=== PATIENT | male | born 1935 | race Caucasian/White ===

== ENCOUNTER 2022-02-28 08:01 | Day surgery (SDC) | payer MEDICARE, OTHER ==
[2022-02-28] VITALS (11 sets, daily range): BP systolic 98–128; BP diastolic 61–91
[~2022-02-28] VITALS: Ht 174 cm; Wt 75.0 kg
[2022-02-28] MEDS ORDERED: NS IV 1000 ML 1,000 ML IV STA (08:04)
[2022-02-28] MEDS ORDERED: fentaNYL INJ 100 MCG/2 ML AMP IVP ONE (08:15)
[2022-02-28] MEDS ORDERED: LIDOCAINE 1% INJ 20 ML VIAL INJ ONE (08:15)
[2022-02-28] MEDS ORDERED: MIDAZOLAM 2 MG/2 ML (VERSED) VIAL IVP ONE (08:15)
[2022-02-28 08:40] LABS: EOSINOPHILS % (AUTO) 1 % (0-10); HEMOGLOBIN 8.3 g/dL (13.3-17.7); MEAN CORPUSCULAR VOLUME 102 fL (80-99)
[2022-02-28 08:42] LABS: ABSOLUTE RETIC # 36 10e9/uL (24-90); BASOPHILS # (AUTO) 0.1 10^3/uL (0.0-0.1); BASOPHILS % (AUTO) 0 % (0-10); EOSINOPHILS # (AUTO) 0.2 10^3/uL (0.0-0.3); HEMATOCRIT 25 % (40-54); LYMPHOCYTES % (AUTO) 14 % (12-44); MEAN CORPUSCULAR HEMOGLOBIN 34 pg (25-34); MEAN CORPUSCULAR HGB CONC 34 g/dL (32-36); MEAN PLATELET VOLUME 9.9 fL (9.0-12.2); MONOCYTES # (AUTO) 1.4 10^3/uL (0.0-1.0); MONOCYTES % (AUTO) 10 % (0-12); NEUTROPHILS # (AUTO) 10.8 10^3/uL (1.8-7.8); NEUTROPHILS % (AUTO) 74 % (42-75); PLATELET COUNT 150 10^3/uL (130-400); RETICULOCYTE % 1.48 % (0.50-2.40); WHITE BLOOD COUNT 14.7 10^3/uL (4.3-11.0)
[2022-02-28 09:02] LABS: INR 1.1 (0.8-1.4); PROTHROMBIN TIME PATIENT 14.5 SEC (12.2-14.7)
[2022-02-28] MEDS ORDERED: PANT40TA52 PO (09:05)
[2022-02-28] MEDS ORDERED: FERR-84 PO (09:05)
[2022-02-28] MEDS ORDERED: LEVO50TA6 PO (09:05)
[2022-02-28 09:57] LABS: ANISOCYTOSIS SLIGHT; BAND NEUTROPHILS 2 %; BASOPHILS % (MANUAL) 0 %; EOSINOPHILS % (MANUAL) 3 %; LYMPHOCYTES % (MANUAL) 13 %; MONOCYTES % (MANUAL) 5 %; NEUTROPHILS % (MANUAL) 77 %; POIKILOCYTOSIS SLIGHT; POLYCHROMASIA SLIGHT
[2022-02-28 09:58] LABS: ELLIPT/OVALOCYTES SLIGHT; TEAR DROP CELLS SLIGHT
--- NOTE | 2022-02-28 10:10 | Pre-Op Note & Conscious Sedat ---
Pre-Operative Progress Note H&P Reviewed The H&P was reviewed, patient examined and no changes noted. Date H&P Reviewed: February 28, 2022 Time H&P Reviewed: 09:00 Pre-Op Diagnosis: D53.9 Conscious Sedation Pre-Proced Time 09:00 ASA Score 2 For ASA 3 and 4: Consider anesthesia and medical clearance. Also, for patients with a history of failed moderate sedation consider anesthesia. Airway Lungs Heart ASA score ASA 1: a normal healthy patient ASA 2: a patient with a mild systemic disease (mid diabetes, controlled hypertension, obesity ASA 3: a patient with a severe systemic disease that limits activity (angina, COPD, prior Myocardial infarction) ASA 4: a patient with an incapacitating disease that is a constant threat to life (CHF, renal failure) ASA 5: a moribund patient not expected to survive 24 hrs. (ruptured aneurysm) ASA 6: a declared brain- patient whose organs are being harvested. For emergent operations, add the letter E after the classification Mallampati Classification Grade 2 Sedation Plan Analgesia, Amnesia, Plan communicated to team members, Discussed options with patient/fam, Discussed risks with patient/fam The patient is an appropriate candidate to undergo the planned procedure, sedation, and anesthesia. The patient immediately re-assessed prior to indication. MARINO MALIN MD February 28, 2022 10:10
[2022-02-28] MEDS ORDERED: HYDROcodone/APAP 5 MG/325 MG (LORTAB) TAB PO PRN (10:15)
--- NOTE | 2022-02-28 10:43 | Diagnostic Imaging Report ---
Indication: D 53.9. Patient presents for CT-guided bone marrow aspiration and biopsy. Patient is brought to the CT suite placed on the table in the prone addition. Axial imaging through the pelvis was performed to evaluate appropriate entry site. The low back was prepped and draped in usual sterile fashion. Small amount of 1% lidocaine was utilized for local anesthesia. The procedure was performed utilizing conscious sedation with radiology nursing and constant patient monitoring. Patient was given a total of 50 mcg of fentanyl intravenously and 1 mg of Versed intravenously. Total procedure time was 3 minutes. Bone marrow needle was advanced and placed with its tip along the posterior cortex of the right iliac bone. The bone marrow needle was advanced through the cortex utilizing the bone marrow drill. 2 bone marrow aspirates were then obtained. Next, the bone marrow drill was utilized to obtain a bone marrow core sample. The needle was withdrawn and hemostasis was obtained using manual compression. The patient tolerated the procedure well and left the department in stable condition. IMPRESSION: Successful CT-guided bone marrow aspiration and core biopsy utilizing conscious sedation. Pathology results are currently pending. Dictated by: Dictated on workstation # [id number]
== END 2022-02-28 12:00 | disposition home or self-care (01) ==
LOC: RAD 08:01 → SDC 09:22 → RAD 12:00
PROVIDERS: ATTEND Internal Medicine Hematology & Oncology
DX: D53.9 Nutritional anemia, unspecified (principal); D72.821 Monocytosis (symptomatic); Z87.891 Personal history of nicotine dependence; Z85.46 Personal history of malignant neoplasm of prostate
CPT/HCPCS: 36415; 38222; 77012; 85007; 85027; 85045; 85610; 85730; 99156